=== PATIENT | male | born 1955 | race Hispanic/Latino ===

== ENCOUNTER 2022-03-22 11:46 | Outpatient (CLI) | payer MEDICARE | END 2022-03-22 11:47 | disposition home or self-care (01) | LOC: LABHHL 11:46 | PROVIDERS: ATTEND Otolaryngology | DX: C01 Malignant neoplasm of base of tongue (principal); K14.8 Other diseases of tongue | CPT/HCPCS: 88184; 88185; 88305; 88341; 88342 ==